=== PATIENT | female | born 1975 | race Caucasian/White ===

== ENCOUNTER → 2017-08-12 15:22 | Outpatient (CLI) | payer OTHER, SELFPAY ==
--- NOTE | 2017-08-12 | DI.MG.S_ITS ---
BILATERAL DIGITAL SCREENING MAMMOGRAM 3D/2D WITH CAD: 08/12/2017 CLINICAL: Routine screening. Comparison is made to exams dated: 08/06/2016 mammogram, 07/26/2016 mammogram, and 07/24/2015 mammogram - [facility]. There are scattered fibroglandular elements in both breasts. Current study was also evaluated with a Computer Aided Detection (CAD) system. No significant masses, calcifications, or other findings are seen in either breast. There has been no significant interval change. IMPRESSION: NEGATIVE There is no mammographic evidence of malignancy. A 1 year screening mammogram is recommended. This exam was interpreted at Station ID: [id number]. NOTE: For mammograms, a report in lay terms will be sent to the patient. Approximately 15% of breast malignancies will not be visualized mammographically. In the management of a palpable breast mass, a negative mammogram must not discourage biopsy of a clinically suspicious lesion. Electronically Signed By: César weldon/dionne:08/12/2017 15:46:14 letter sent: Normal Exam ACR BI-RADS Category 1: Negative [id number]
== END ==
PROVIDERS: Family Provider Family Medicine; PCP Family Medicine
DX: Z12.31 Encounter for screening mammogram for malignant neoplasm of breast (principal)
CPT/HCPCS: 77063; 77067

== ENCOUNTER → 2018-08-18 12:13 | Outpatient (CLI) | payer OTHER, SELFPAY | PROVIDERS: Family Provider Family Medicine; PCP Family Medicine | DX: Z12.31 Encounter for screening mammogram for malignant neoplasm of breast (principal) ==

== ENCOUNTER → 2018-09-11 08:57 | Outpatient (CLI) | payer OTHER, SELFPAY ==
--- NOTE | 2018-09-11 08:59 | DI.MG.S_ITS ---
BILATERAL DIGITAL DIAGNOSTIC MAMMOGRAM 3D/2D: 09/11/2018 CLINICAL: Left breast pain. Comparison is made to exams dated: 08/12/2017 mammogram, 07/26/2016 mammogram, and 07/24/2015 mammogram - [facility]. There are scattered fibroglandular elements in both breasts. No significant masses, calcifications, or other findings are seen in either breast. Specifically, no abnormalities in the area of pain, upper outer left breast. IMPRESSION: INCOMPLETE: NEEDS ADDITIONAL IMAGING EVALUATION There is no abnormality seen in the left breast to correspond with the pain in the superior lateral aspect, however, ultrasound is recommended. This was performed immediately following this exam. This exam was interpreted at Station ID: [id number]. NOTE: For mammograms, a report in lay terms will be sent to the patient. Approximately 15% of breast malignancies will not be visualized mammographically. In the management of a palpable breast mass, a negative mammogram must not discourage biopsy of a clinically suspicious lesion. Electronically Signed By: Maria Fernanda evans/:09/11/2018 09:51:05 ACR BI-RADS Category 0: Incomplete [id number]
--- NOTE | 2018-09-11 08:59 | DI.US.S_ITS ---
ULTRASOUND OF LEFT BREAST: 09/11/2018 CLINICAL: Intermitten pain in left breast. Comparison is made to exams dated: 09/11/2018 mammogram, 08/18/2018 mammogram, 08/12/2017 mammogram, 08/06/2016 mammogram, 07/26/2016 mammogram, and 07/24/2015 mammogram - [facility]. Color flow and real-time ultrasound of the left breast were performed. Wise scale images of the real-time examination were reviewed. No abnormalities were seen sonographically in the left breast. IMPRESSION: NEGATIVE There is no abnormality seen in the left breast to correspond with the pain in the lower aspect. There is no sonographic evidence of malignancy. Return to annual mammogram screening schedule is recommended. Findings and recommendations were conveyed to the patient at time of exam. This exam was interpreted at Station ID: [id number]. Electronically Signed By: Maria Fernanda evans/:09/11/2018 11:19:10 letter sent: Normal Exam Ultrasound BI-RADS: 1 Negative
== END ==
PROVIDERS: PCP Family Medicine
DX: R92.8 Other abnormal and inconclusive findings on diagnostic imaging of breast (principal); N64.4 Mastodynia
CPT/HCPCS: 76642; 77066; G0279

== ENCOUNTER → 2018-10-16 07:11 | Outpatient (CLI) | payer OTHER, SELFPAY ==
[2018-10-16 08:35] LABS: Hematocrit 37.1 % (36-46); Hemoglobin 12.4 g/dL (12.0-16.0); Mean Corpuscular HGB Conc 33.4 % (30-36); Mean Corpuscular Hemoglobin 31.8 PG (26-34); Mean Corpuscular Volume 95.3 fL (80-100); Platelet Count 270 X10^3/uL (150-400); Red Blood Cell Count 3.89 X10^6/uL (4.0-5.2); Red Cell Distribution Width 12.8 % (11.6-14.8); White Blood Cell Count 5.2 X10^3/uL (4.5-11.0)
[2018-10-16 09:05] LABS: Alanine Aminotransferase 13 IU/L (9-52); Albumin 4.1 g/dL (3.5-5.0); Albumin Globulin Ratio 1.3 (1.0-2.8); Alkaline Phosphatase 41 U/L (38-126); Aspartate Aminotransferase 24 IU/L (14-36); Bilirubin Total 0.3 mg/dL (0.2-1.3); Blood Urea Nitrogen 12 mg/dL (7-17); Calcium 8.9 mg/dL (8.4-10.2); Carbon Dioxide 31 mmol/L (22-32); Chloride 103 mmol/L (98-107); Cholesterol 157 mg/dL (140-199); Estimated Glomerular Filt Rate > 60.0 mL/min (>60); Globulin 3.1 g/dL (1.7-4.1); Glucose 81 mg/dL (70-100); HDL Cholesterol 48 mg/dL (40-60); HEMOLYSIS < 15 (0-50); LDL Cholesterol Calculated 94 mg/dL (<100); Potassium 4.4 mmol/L (3.4-5.1); Sodium 139 mmol/L (137-145); Total Protein 7.2 g/dL (6.3-8.2); Triglycerides 77 mg/dL (35-150)
[2018-10-16 10:50] LABS: Neutrophils Absolute Manual 2600 /uL (3000-5900); RBC Morphology Normal Morphology; Total Cells Counted 100
== END ==
PROVIDERS: PCP Family Medicine; Visit Provider Family Medicine
DX: R53.83 Other fatigue (principal)
CPT/HCPCS: 36415; 80053; 80061; 84443; 85025

== ENCOUNTER → 2019-11-23 12:09 | Outpatient (CLI) | payer OTHER, SELFPAY ==
--- NOTE | 2019-11-23 12:24 | DI.MG.S_ITS ---
Patient Name: TATE THOMAS date: 1975 Sex: F Attending Physician: Garret Indications: Date: 11/23/2019 12:28 At the request of: ROSARIO DAVIES Procedure: MM screening mammo BI BILATERAL DIGITAL SCREENING MAMMOGRAM 3D/2D WITH CAD: 11/23/2019 CLINICAL: Routine screening. Comparison is made to exams dated: 09/11/2018 mammogram, 08/12/2017 mammogram, and 07/26/2016 mammogram - [facility]. There are scattered fibroglandular elements in both breasts. Current study was also evaluated with a Computer Aided Detection (CAD) system. No significant masses, calcifications, or other findings are seen in either breast. There has been no significant interval change. IMPRESSION: NEGATIVE There is no mammographic evidence of malignancy. A 1 year screening mammogram is recommended. This exam was interpreted at Station ID: [id number]. NOTE: For mammograms, a report in lay terms will be sent to the patient. Approximately 15% of breast malignancies will not be visualized mammographically. In the management of a palpable breast mass, a negative mammogram must not discourage biopsy of a clinically suspicious lesion. Electronically Signed By: Herminio jansen/dionne:11/23/2019 12:50:17 letter sent: Normal Exam ACR BI-RADS Category 1: Negative [id number]
== END ==
PROVIDERS: PCP Family Medicine; Referring Provider Family Medicine; Visit Provider Family Medicine
DX: Z12.31 Encounter for screening mammogram for malignant neoplasm of breast (principal)
CPT/HCPCS: 77063; 77067

== ENCOUNTER 2022-11-28 20:46 | Observation (INO) | payer OTHER, MEDICAID, SELFPAY ==
[2022-11-28] VITALS (11 sets, daily range): BP systolic 108–144; BP diastolic 64–83; PULSE 60–114; RESP 10–18; TEMP 36.6; O2SAT 92–100; BMI 25.4
--- NOTE | 2022-11-28 20:56 | DI.RAD.S_ITS ---
PROCEDURE: XR CHEST 1V INDICATIONS: Chest pain TECHNIQUE: One view of the chest was acquired. COMPARISON: None. FINDINGS: Surgical changes and devices: None. Lungs and pleura: Lungs are clear. No pleural effusions or pneumothorax. Mediastinum: Mediastinal contours appear normal. Heart size is normal. Bones and chest wall: No suspicious bony lesions. Overlying soft tissues appear unremarkable. IMPRESSION: 1. No acute cardiopulmonary disease. Dictated by: Yoshi Brooks M.D. on 11/28/2022 at 21:34 Approved by: Yoshi Brooks M.D. on 11/28/2022 at 21:35
[2022-11-28] MEDS: ASPIRIN 81 MG CHEW TAB 324 MG PO (20:59)
[2022-11-28 21:14] LABS: Add Manual Diff / Slide Review NO; Basophils Absolute Auto 0 /uL (0-100); Basophils Percent Auto 0.6 % (0-2); Eosinophils Absolute Auto 100 /uL (0-450); Eosinophils Percent Auto 1.3 % (2-4); Hematocrit 36.1 % (36-46); Hemoglobin 12.1 g/dL (12.0-16.0); Lymphocytes Absolute Auto 2000 /uL (1100-4500); Mean Corpuscular HGB Conc 33.4 % (30-36); Mean Corpuscular Volume 92.9 fL (80-100); Monocytes Absolute Auto 600 /uL (0-900); Monocytes Percent Auto 8.8 % (3-14); Neutrophils Absolute Auto 4200 /uL (1500-7000); Neutrophils Percent Auto 60.3 % (50-75); Platelet Count 281 X10^3/uL (150-400); Red Blood Cell Count 3.89 X10^6/uL (4.0-5.2)
[2022-11-28 21:23] LABS: INR 1.1 (0.9-1.3); Prothrombin Time 12.2 SECONDS (10.1-12.7)
[2022-11-28 21:26] LABS: PTT Partial Thromboplastin Tim 31 SECONDS (26-36)
[2022-11-28 21:27] LABS: Alanine Aminotransferase 20 IU/L (<35); Albumin 4.2 g/dL (3.5-5.0); Albumin Globulin Ratio 1.4 (1.0-2.8); Alkaline Phosphatase 39 U/L (38-126); Aspartate Aminotransferase 26 IU/L (14-36); BUN Creatinine Ratio 15.1 (6-22); Bilirubin Total 0.2 mg/dL (0.2-1.3); Blood Urea Nitrogen 8 mg/dL (7-17); Calcium 8.9 mg/dL (8.4-10.2); Carbon Dioxide 28 mmol/L (22-32); Chloride 103 mmol/L (98-107); Creatine Kinase 93 U/L (30-135); Estimated Glomerular Filt Rate > 60 mL/min (>60); Globulin 3.1 g/dL (1.7-4.1); Glucose 98 mg/dL (70-100); HEMOLYSIS < 15 (0-50); Lipase 85 U/L (23-300); Magnesium 1.8 mg/dL (1.6-2.3); Potassium 3.5 mmol/L (3.4-5.1); Sodium 138 mmol/L (137-145); Total Protein 7.3 g/dL (6.3-8.2)
[2022-11-28 21:38] LABS: Troponin I < 0.012 ng/mL (0.01-0.034)
--- NOTE | 2022-11-28 21:49 | ED_ITS ---
HPI - Chest Pain General Chief Complaint: Chest Pain Stated Complaint: chest pain Time Seen by Provider: 11/28/22 21:01 Source: patient Mode of arrival: Ambulatory History of Present Illness HPI narrative: 47-year-old woman with no significant medical history presents complaining of chest pain. She states she was walking on her elliptical earlier today began having palpitations and chest tightness that was different and more intense than what she typically experiences with her regular exercise routine. It did seem to calm down when she got off the treadmill. As she was up and around fixing dinner she noticed again the tightness. After dinner she went for a walk with her and again with the activity felt that she was significantly more short of breath, had faster heart rate than she would have anticipated and squeezing chest tightness more on the left side. There was no nausea or diaphoresis. She does note that her father had heart attack at the age of 47 and her grandfather of coronary artery disease before the age of 50. She would had similar pain about 2 years ago had workup with the Cardiology had a s tandard treadmill stress test and was told that things were unremarkable. She had a colonoscopy on Tuesday at the [facility] and the nurse at the time told her that she had some flipped T-waves but the doctor was not concerned with the EKG. She reports no recent fever cough chills or viral symptoms. No lower extremity edema Related Data Home Medications Medication Instructions Recorded Confirmed OMEGA-3/DHA/EPA/FISH OIL (Pacific-3 1 cap PO ##0 11/21/11 10/11/19 Fish Oil Softgel) BORON/CA/CU/MG/MN/VIT D/ZINC 1 tab PO QDAY ##0 05/18/12 10/11/19 (#CALCIUM 600 + MINERALS) Coconut Oil (#COCONUT OIL 1 ML) 1 ml PO QDAY ##0 05/18/12 10/11/19 CA PANTOTHENATE/FOLIC ACID/VIT 1 tab PO QDAY ##0 07/25/12 10/11/19 (MULTIVITAMIN) Previous Rx's Medication Instructions Recorded fexofenadine-pseudoephedrine ER 1 tab PO QDAY #30 tabs 08/02/16 180 mg-240 mg tablet,ext.release 24 hr (Olena-D 24 Hour) acyclovir 400 mg tablet 400 mg PO QID #20 tabs 07/25/19 Allergies Allergy/AdvReac Type Severity Reaction Status Date / Time prednisone Allergy Intermediate facial Verified 12/03/19 14:55 swelling and nausea fentanyl Allergy Verified 11/28/22 20:55 nickel Allergy Verified 11/28/22 20:55 metal braces AdvReac Unknown Uncoded 12/03/19 14:55 Review of Systems Review of Systems Narrative: Pertinent positive and negative findings as per HPI Patient History Surgical History Status post delivery (04/23/11) Status post delivery (11/21/09) Status post colonoscopy Status post tubal ligation (04/23/11) Family History Brother Age: 59 High cholesterol Brother Age: 56 High cholesterol Father Cancer Heart disease Hypertension Mother Cancer Grandfather Heart disease Grandmother Cancer Social History Smoking Status: Never smoker Smoking Status: Never smoker Substance Use Type: does not use Exam Initial Vital Signs Initial Vital Signs: Vital Signs Temperature 97.9 F 11/28/22 20:47 Pulse Rate 114 H 11/28/22 20:47 Respiratory Rate 16 11/28/22 20:47 Blood Pressure 144/74 H 11/28/22 20:47 Pulse Oximetry 100 11/28/22 20:47 Oxygen Delivery Method Room Air 11/28/22 20:47 General: Healthy appearing, in no acute distress. Able to give a complete and coherent history. Well-nourished well-developed HEENT: Moist mucous membranes, normal sclera with reactive pupils, Neck: No JVD, supple Respiratory: Lungs are clear to auscultation, no wheezing no rales no rhonchi. Full and symmetrical air movement Cardiac: Tachycardic with occasional irregular beats, no murmurs Abdomen: Soft, nontender, good bowel tones, no flank pain Skin: Warm and dry, no rashes Neurologic: Grossly neurologically intact with no obvious asymmetries or abnormalities Extremities: No trauma, well perfused Psych: Cooperative, appropriate insight and affect Course Orders Ordered: ED Orders 11/28/22 20:55 Complete Blood Count AUTO DIFF Stat Comprehensive Metabolic Panel Stat D Dimer Stat Lipase Stat Magnesium Stat PTT Partial Thromboplastin Wilber Stat Prothrombin Time INR Stat Troponin & CK Cardiac Panel Stat 11/28/22 20:56 XR chest 1V Stat EKG-12 Lead Stat 11/28/22 23:16 EKG-12 Lead Stat 11/28/22 23:19 Trop I [Troponin I] Stat Discontinued Medications Aspirin (Aspirin 81 Mg Chew Tab) 324 mg PO NOW ONE Stop: 11/28/22 20:56 Last Admin: 11/28/22 20:59 Dose: 324 mg Documented By: Vital Signs Vital signs: Vital Signs - 8 hr 11/28/22 20:47 11/28/22 20:51 11/28/22 20:52 Temperature 97.9 F Pulse Rate 114 H 108 H 103 H Respiratory Rate 16 14 Blood Pressure 144/74 H Pulse Oximetry 100 100 Oxygen Delivery Method Room Air 11/28/22 21:00 11/28/22 21:00 11/28/22 21:30 Temperature Pulse Rate 103 H Respiratory Rate 18 Blood Pressure 127/78 108/74 Pulse Oximetry 100 Oxygen Delivery Method 11/28/22 21:30 11/28/22 22:00 11/28/22 22:00 Temperature Pulse Rate 78 83 Respiratory Rate 11 L 13 Blood Pressure 118/83 Pulse Oximetry 99 100 Oxygen Delivery Method 11/28/22 22:30 11/28/22 22:30 11/28/22 23:00 Temperature Pulse Rate 63 Respiratory Rate 16 Blood Pressure 132/76 118/74 Pulse Oximetry 97 Oxygen Delivery Method 11/28/22 23:00 11/28/22 23:30 11/28/22 23:31 Temperature Pulse Rate 60 70 71 Respiratory Rate 10 L 13 Blood Pressure Pulse Oximetry 95 97 96 Oxygen Delivery Method 11/28/22 23:31 11/28/22 23:40 11/28/22 23:40 Temperature Pulse Rate 69 Respiratory Rate Blood Pressure 144/76 H 130/64 Pulse Oximetry 92 Oxygen Delivery Method 11/29/22 00:00 11/29/22 00:00 11/29/22 00:30 Temperature Pulse Rate 77 Respiratory Rate 13 Blood Pressure 121/82 127/84 Pulse Oximetry 97 Oxygen Delivery Method 11/29/22 00:30 Temperature Pulse Rate 65 Respiratory Rate 13 Blood Pressure Pulse Oximetry 98 Oxygen Delivery Method MDM - Chest Pain Lab Data 11/28/22 20:55 11/28/22 20:55 Labs: Lab Results 11/28/22 11/28/22 11/28/22 Range/Units 20:55 20:55 20:55 WBC 7.0 (4.5-11.0) X10^3/uL RBC 3.89 L (4.0-5.2) X10^6/uL Hgb 12.1 (12.0-16.0) g/dL Hct 36.1 (36-46) % MCV 92.9 (80-100) fL MCH 31.0 (26-34) PG MCHC 33.4 (30-36) % RDW 14.0 (11.6-14.8) % Plt Count 281 (150-400) X10^3/uL Neut % (Auto) 60.3 (50-75) % Lymph % (Auto) 29.0 (25-40) % [place] % (Auto) 8.8 (3-14) % Eos % (Auto) 1.3 L (2-4) % Baso % (Auto) 0.6 (0-2) % Neut # (Auto) 4200 (1256-9832) /uL Lymph # (Auto) 2000 (9335-0909) /uL [place] # (Auto) 600 (0-900) /uL Eos # (Auto) 100 (0-450) /uL Baso # (Auto) 0 (0-100) /uL PT 12.2 (10.1-12.7) SECONDS INR 1.1 (0.9-1.3) APTT 31 (26-36) SECONDS D-Dimer (<500) ng/ml Sodium 138 (137-145) mmol/L Potassium 3.5 (3.4-5.1) mmol/L Chloride 103 (98-107) mmol/L Carbon Dioxide 28 (22-32) mmol/L BUN 8 (7-17) mg/dL Creatinine 0.53 (0.52-1.04) mg/dL Estimated GFR > 60 (>60) mL/min BUN/Creatinine Ratio 15.1 (6-22) Glucose 98 (70-100) mg/dL Calcium 8.9 (8.4-10.2) mg/dL Magnesium 1.8 (1.6-2.3) mg/dL Total Bilirubin 0.2 (0.2-1.3) mg/dL AST 26 (14-36) IU/L ALT 20 (<35) IU/L Alkaline Phosphatase 39 (38-126) U/L Total Creatine Kinase 93 (30-135) U/L Troponin I < 0.012 (0.01-0.034) ng/mL Total Protein 7.3 (6.3-8.2) g/dL Albumin 4.2 (3.5-5.0) g/dL Globulin 3.1 (1.7-4.1) g/dL Albumin/Globulin Ratio 1.4 (1.0-2.8) Lipase 85 (23-300) U/L 11/28/22 11/28/22 Range/Units 20:55 23:19 WBC (4.5-11.0) X10^3/uL RBC (4.0-5.2) X10^6/uL Hgb (12.0-16.0) g/dL Hct (36-46) % MCV (80-100) fL MCH (26-34) PG MCHC (30-36) % RDW (11.6-14.8) % Plt Count (150-400) X10^3/uL Neut % (Auto) (50-75) % Lymph % (Auto) (25-40) % [place] % (Auto) (3-14) % Eos % (Auto) (2-4) % Baso % (Auto) (0-2) % Neut # (Auto) (6410-1782) /uL Lymph # (Auto) (0956-9520) /uL [place] # (Auto) (0-900) /uL Eos # (Auto) (0-450) /uL Baso # (Auto) (0-100) /uL PT (10.1-12.7) SECONDS INR (0.9-1.3) APTT (26-36) SECONDS D-Dimer < 215 (<500) ng/ml Sodium (137-145) mmol/L Potassium (3.4-5.1) mmol/L Chloride (98-107) mmol/L Carbon Dioxide (22-32) mmol/L BUN (7-17) mg/dL Creatinine (0.52-1.04) mg/dL Estimated GFR (>60) mL/min BUN/Creatinine Ratio (6-22) Glucose (70-100) mg/dL Calcium (8.4-10.2) mg/dL Magnesium (1.6-2.3) mg/dL Total Bilirubin (0.2-1.3) mg/dL AST (14-36) IU/L ALT (<35) IU/L Alkaline Phosphatase (38-126) U/L Total Creatine Kinase (30-135) U/L Troponin I < 0.012 (0.01-0.034) ng/mL Total Protein (6.3-8.2) g/dL Albumin (3.5-5.0) g/dL Globulin (1.7-4.1) g/dL Albumin/Globulin Ratio (1.0-2.8) Lipase (23-300) U/L MDM Narrative Medical decision making narrative: CC: Chest pain exertional worse over the afternoon associated with tachycardia Complicating co-morbidities: Family history with father and grandfather with heart attacks prior to the age of 50 Data collected from: patient, Medical records reviewed: Gynecologic and family practice notes are reviewed Differential considered: Acute coronary syndrome, pulmonary embolism, pneumothorax Exam documented above, pertinent findings include: Completely benign exam with pain resolved at rest currently Lab Test results independently reviewed as above. Pertinent findings: CBC is unremarkable Chemistries are reassuring Initial troponin is undetectable as is creatinine kinase. Repeat troponin is equally undetectable Lipase is unremarkable Independently reviewed EKG sinus rhythm with frequent PVCs, essentially bigeminy, with no acute ischemic changes 23:24 Repeat EKG shows sinus rhythm rate of 74, much less frequent PVCs, still no acute ischemic changes. Imaging studies independently reviewed: Chest x-ray is unremarkable without cardiomegaly or pulmonary infiltrates Treatments: asprin Re-evaluations:1120pm patient's heart rate has stabilized with only an occasional PVC rather than bigeminy at this point. She is not having any addit ional chest pain or tightness. Second troponin is being drawn. Heart score with the 1st troponin is 5 which puts her at high risk and hospital observation is recommended. I have discussed this with the patient and her . They are amenable. We will contact the hospitalist after the 2nd troponin. If it is increasing will discuss possible transfer to facility with inpatient Cardiology and veterinarian laboratory animal care. Discussion: Patient is re-evaluated. She remains pain-free at this point her heart score is 5 which puts her at high risk and hospitalization is recommended. Troponins remain negative. Frequency of PVCs is significantly less. Care is reviewed with the hospitalist service, Dr Diego, questions are answered and patient is safe for transfer to the floor Discharge Plan Departure Patient Disposition: Admitted as Observation Clinical Impression: Unstable angina pectoris Chest pain Qualifiers: Ischemic chest pain type: unstable angina pectoris
[2022-11-28 22:31] LABS: D Dimer < 215 ng/ml (<500)
[2022-11-28 23:48] LABS: Troponin I < 0.012 ng/mL (0.01-0.034)
[2022-11-29] VITALS (8 sets, daily range): BP systolic 100–127; BP diastolic 64–84; PULSE 64–77; RESP 11–20; TEMP 35.6–36.6; O2SAT 97–99; BMI 25.5
--- NOTE | 2022-11-29 08:12 | DI.ECHO.S_ITS ---
[place] +---------+ [facility] +---------+ : : [address] : : : : [id number] : : : : Phone: [phone] Echocardiogram Report + + :Name: TATE THOMAS Study Date: 11/29/2022 Height: 63 in : :[facility] ReadingLocation: Weight: 144 lb : : Gender: Female BSA: 1.7 m2 : :: 1975 Age: 47 yrs BP: 102/67 mmHg: :Reason For Study: CHEST PAIN : :Ordering Physician: KEKE, : :ROSARIO Performed By: Daphney Gu : :Referring: ROSARIO DAVIES : + + Interpretation Summary The ejection fraction is estimated to be 55-60%. Diastolic parameters suggest probable normal left ventricular diastolic function and normal filling pressures. The right ventricle is normal in size and function. There is trace aortic regurgitation. Pulmonary artery pressures cannot be estimated because of the lack of a measurable TR jet velocity but the IVC suggests a CVP of around 3 mmHg. Procedure: A two-dimensional transthoracic echocardiogram with color flow and Doppler was performed. The study quality was technically adequate. There is no prior echocardiogram noted for this patient. The patient was in sinus rhythm with heart rates between 64-72 bpm during the exam. Left Ventricle: The left ventricle is normal in size and wall thickness. The ejection fraction is estimated to be 55-60%. Diastolic parameters suggest probable normal left ventricular diastolic function and normal filling pressures. Right Ventricle: The right ventricle is normal in size and function. Atria: The left atrium is borderline dilated. Right atrial size is normal. There is no Doppler evidence for an interatrial shunt. Mitral Valve: The mitral valve is normal in structure and function. There is trace mitral regurgitation. Aortic Valve: The aortic valve is not well visualized. There is no aortic valve stenosis. There is trace aortic regurgitation. Tricuspid Valve: The tricuspid valve is normal in structure and function. There is trace tricuspid regurgitation. Pulmonary artery pressures cannot be estimated because of the lack of a measurable TR jet velocity but the IVC suggests a CVP of around 3 mmHg. Pulmonic Valve: The pulmonic valve is not well seen, but is grossly normal. There is no pulmonic valvular regurgitation. Great Vessels: The aortic root is normal size. The dimensions of the ascending aorta are normal. The IVC is of normal diameter and collapses greater than 50% with a sniff. This suggests a low right atrial pressure of 3 mm Hg. Pericardium/ Pleura There is no pericardial effusion. There is no pleural effusion. MMode/2D Measurements & Calculations LVIDd: 5.0 cm LVOT diam: 2.1 cm LVIDs: 3.7 cm Ao root diam: 3.3 cm FS: 24.7 % asc Aorta Diam: 3.0 cm EPSS: 0.74 cm Ao Arch Diam (Prox Trans): 2.3 cm IVSd: 0.66 cm LVPWd: 0.79 cm LV tran. diameter/BSA (cm/m^2): 3.0 LV sys. diameter/BSA (cm/m^2): 2.2 LA A2 area: 21.9 cm2 RA long axis: 4.3 cm LA A4 area: 15.8 cm2 RA area: 12.4 cm2 LA length (vol): 4.8 cm RA vol: 30.8 ml LA vol: 60.7 ml RA : 18.3 ml/m2 LA vol index: 36.1 ml/m2 IVC diam: 1.6 cm RVD1 (basal): 3.1 cm RVD2 (mid): 3.1 cm TAPSE: 2.7 cm Doppler Measurements & Calculations Ao V2 max: 116.7 cm/sec LVOT Max Bola: 92.5 cm/sec Ao V2 mean: 85.0 cm/sec LV V1 max P.4 mmHg Ao max P.4 mmHg LV V1 VTI: 21.3 cm Ao mean P.2 mmHg BAL(I,D): 2.7 cm2 Ao V2 VTI: 26.2 cm BAL(V,D): 2.7 cm2 sev ratio: 0.81 BAL indexed to BSA (cm^2/m^2): 1.6 MV E max bola: 51.0 cm/sec PA V2 max: 78.7 cm/sec MV A max bola: 54.1 cm/sec PA V2 mean: 62.0 cm/sec MV E/A: 0.94 PA mean P.6 mmHg Med Peak E' Bola: 10.1 cm/sec PA pr(Accel): 7.1 mmHg E/E' med: 5.0 Lat Peak E' Bola: 13.8 cm/sec E/E' lat: 3.7 E/e' average: 4.4 MV dec time: 0.21 sec [facility] 71.2 ml Reading Physician:01:58 PM
--- NOTE | 2022-11-29 08:27 | P.HP_ITS ---
History of Present Illness History of Present Illness Date Patient Seen: 11/29/22 Time Patient Seen: 08:27 Chief complaint: chest pain Narrative: 47-year-old female presented to the emergency department yesterday afternoon with chest pain. Patient states he is had chest pain on and off for about 12 hours. She had chest pain previously about 2 years ago and had a workup with a stress echocardiogram which was normal. Her chest pain then was at rest this is different. Patient states she has a strong family history of heart disease in both of her parents. Yesterday evening while she was on the elliptical operational trainer she began to have pain in her chest. It got worse with activity. She describes as an achy pain in the left side of her chest. 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 Patient then began to have shortness of breath. She got off her treadmill and then the pain happened again in the kitchen each time it happened happened a little bit longer. She decided to go outside go for a little walk with her and during that time the pain in her chest got even worse. At that p oint they came to the emergency department. The pain has happened once since then. In the emergency department patient had EKG x2 which showed no ST or T- wave changes. She had 2 sets of cardiac enzymes which were negative. Due to her strong family history of heart disease. Her playground monitor which showed multiple PVCs and PACs she was admitted the hospital for further evaluation and workup. This morning patient has a mild amount of chest discomfort last night but none now. She is no longer short of breath patient had travel trip about 3 weeks ago to [place] patient underwent a colonoscopy on Tuesday. She is not on any medications she is not on any hormone replacement. She has not taken an aspirin. On her playground monitor overnight patient has had frequent PVCs and PACs. I reviewed her EKGs which showed PVCs and PACs without ST or T-wave changes her cardiac enzymes x2 are negative. [facility] Surgical History Status post delivery (04/23/11) Status post delivery (11/21/09) Status post colonoscopy Status post tubal ligation (04/23/11) Family History Brother Age: 59 High cholesterol Brother Age: 56 High cholesterol Father Cancer Heart disease Hypertension Mother Cancer Grandfather Heart disease Grandmother Cancer Social History household members: spouse and children Smoking Status: Never smoker alcohol intake: never Meds Home Medications and Allergies Home Medications Medication Instructions Recorded Confirmed Type OMEGA-3/DHA/EPA/FISH OIL ([place]-3 1 cap PO DAILY ##0 11/21/11 11/29/22 History Fish Oil Softgel) [place]/CA/CU/MG/MN/VIT D/ZINC 1 tab PO QDAY ##0 05/18/12 11/29/22 History (#CALCIUM 600 + MINERALS) Coconut Oil (#COCONUT OIL 1 ML) 1 ml PO QDAY ##0 05/18/12 11/29/22 History CA PANTOTHENATE/FOLIC ACID/VIT 1 tab PO QDAY ##0 07/25/12 11/29/22 History (MULTIVITAMIN) fexofenadine-pseudoephedrine ER 1 tab PO QDAY #30 tabs 08/02/16 11/29/22 Rx 180 mg-240 mg tablet,ext.release 24 hr (Olena-D 24 Hour) acyclovir 400 mg tablet 400 mg PO QID #20 tabs 07/25/19 11/29/22 Rx Allergies Allergy/AdvReac Type Severity Reaction Status Date / Time prednisone Allergy Intermediate facial Verified 12/03/19 14:55 swelling and nausea fentanyl Allergy Verified 11/28/22 20:55 nickel Allergy Verified 11/28/22 20:55 metal braces AdvReac Unknown Uncoded 12/03/19 14:55 Exam Vital Signs (past 8 hours): - 11/29/22 00:30 11/29/22 00:30 11/29/22 01:00 Temperature Pulse Rate 65 Respiratory Rate 13 Blood Pressure 127/84 126/72 Pulse Oximetry 98 Oxygen Flow Rate 11/29/22 01:00 11/29/22 01:30 11/29/22 01:30 Temperature Pulse Rate 70 68 Respiratory Rate 11 L 13 Blood Pressure 126/75 Pulse Oximetry 98 97 Oxygen Flow Rate 11/29/22 02:00 11/29/22 04:47 11/29/22 08:00 Temperature 96.0 F L 97.4 F L 97.8 F Pulse Rate 64 71 66 Respiratory Rate 15 20 16 Blood Pressure 120/75 100/64 102/67 Pulse Oximetry 98 99 99 Oxygen Flow Rate 0 0 0 Oxygen Delivery Method Room Air Oxygen Flow Rate 0 Narrative Exam Narrative: Gen.: Alert and oriented x3 no apparent distress. HEENT: NCAT PERRLA tympanic membranes are clear nares are patent oral mucosa is moist no tonsillar hypertrophy neck is supple without lymphadenopathy no thyroid enlargement. Cardio: S1-S2 regular rate and rhythm no murmurs appreciated. Respiratory: Lungs are clear to auscultation no wheezes or crackles normal respiratory effort. Abdomen: Soft nontender no rebound or guarding no liver spleen enlargement no appreciable hernias Extremities: Full range of motion no appreciable weakness no cyanosis or edema. Neurologic: Grossly intact. Objective Labs 11/28/22 20:55 11/28/22 20:55 Labs: Laboratory Results - last 24 hr 11/28/22 11/28/22 11/28/22 20:55 20:55 20:55 WBC 7.0 RBC 3.89 L Hgb 12.1 Hct 36.1 MCV 92.9 MCH 31.0 MCHC 33.4 RDW 14.0 Plt Count 281 Neut % (Auto) 60.3 Lymph % (Auto) 29.0 [place] % (Auto) 8.8 Eos % (Auto) 1.3 L Baso % (Auto) 0.6 Neut # (Auto) 4200 Lymph # (Auto) 2000 [place] # (Auto) 600 Eos # (Auto) 100 Baso # (Auto) 0 PT 12.2 INR 1.1 APTT 31 D-Dimer Sodium 138 Potassium 3.5 Chloride 103 Carbon Dioxide 28 BUN 8 Creatinine 0.53 Estimated GFR > 60 BUN/Creatinine Ratio 15.1 Glucose 98 Calcium 8.9 Magnesium 1.8 Total Bilirubin 0.2 AST 26 ALT 20 Alkaline Phosphatase 39 Total Creatine Kinase 93 Troponin I < 0.012 Total Protein 7.3 Albumin 4.2 Globulin 3.1 Albumin/Globulin Ratio 1.4 Lipase 85 11/28/22 11/28/22 20:55 23:19 WBC RBC Hgb Hct MCV MCH MCHC RDW Plt Count Neut % (Auto) Lymph % (Auto) [place] % (Auto) Eos % (Auto) Baso % (Auto) Neut # (Auto) Lymph # (Auto) [place] # (Auto) Eos # (Auto) Baso # (Auto) PT INR APTT D-Dimer < 215 Sodium Potassium Chloride Carbon Dioxide BUN Creatinine Estimated GFR BUN/Creatinine Ratio Glucose Calcium Magnesium Total Bilirubin AST ALT Alkaline Phosphatase Total Creatine Kinase Troponin I < 0.012 Total Protein Albumin Globulin Albumin/Globulin Ratio Lipase Assessment & Plan Assessment and plan (1) Chest pain: Qualifiers: Ischemic chest pain type: unstable angina pectoris Status: Acute Plan 47-year-old female admitted to the hospital because concerning family history and concerning history of chest pain. Patient will have serial cardiac enzymes x3 to rule out myocardial ischemia. EKG x2 is negative. ekg monitor tech shows frequent PVCs and PACs. She is pain-free now. Like to order an echocardiogram this morning to make sure that there is no significant wall lolis on abnormalities. Will order on a D-dimer as well she recently had a colonoscopy procedure and travel within the last few weeks. I am going to order a stress test Cardiolite because of her age and risk factors. Hopefully this can be done as an inpatient if not we may have to do outpatient stress testing once we confirm that there is no myocardial ischemia.
[2022-11-29 08:45] LABS: INR 1.1 (0.9-1.3); Prothrombin Time 12.9 SECONDS (10.1-12.7)
[2022-11-29 08:46] LABS: D Dimer 269 ng/ml (<500)
[2022-11-29 08:50] LABS: Alanine Aminotransferase 19 IU/L (<35); Albumin 3.8 g/dL (3.5-5.0); Albumin Globulin Ratio 1.3 (1.0-2.8); Alkaline Phosphatase 40 U/L (38-126); Aspartate Aminotransferase 24 IU/L (14-36); BUN Creatinine Ratio 16.3 (6-22); Bilirubin Total 0.3 mg/dL (0.2-1.3); Blood Urea Nitrogen 8 mg/dL (7-17); Carbon Dioxide 26 mmol/L (22-32); Chloride 106 mmol/L (98-107); Creatine Kinase 76 U/L (30-135); Estimated Glomerular Filt Rate > 60 mL/min (>60); Globulin 2.9 g/dL (1.7-4.1); Glucose 88 mg/dL (70-100); HEMOLYSIS < 15 (0-50); Potassium 3.6 mmol/L (3.4-5.1); Sodium 138 mmol/L (137-145); Total Protein 6.7 g/dL (6.3-8.2)
[2022-11-29 09:01] LABS: Troponin I < 0.012 ng/mL (0.01-0.034)
--- NOTE | 2022-11-29 09:07 | PC.NURSE ---
Patient denies any chest pain this morning. She is up independently. Patients stress test will be out patient and it will not get done today. It will be outpatient. She does have an echo today, after this is done and results are in. Patient will most likely go home.
--- NOTE | 2022-11-29 15:06 | P.DS_ITS ---
History of Present Illness History of Present Illness Chief complaint: chest pain Narrative: 47-year-old female presented to the emergency department yesterday afternoon with chest pain. Patient states he is had chest pain on and off for about 12 hours. She had chest pain previously about 2 years ago and had a workup with a stress echocardiogram which was normal. Her chest pain then was at rest this is different. Patient states she has a strong family history of heart disease in both of her parents. Yesterday evening while she was on the elliptical epic trainer she began to have pain in her chest. It got worse with activity. She describes as an achy pain in the left side of her chest. 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 Patient then began to have shortness of breath. She got off her treadmill and then the pain happened again in the kitchen each time it happened happened a little bit longer. She decided to go outside go for a little walk with her and during that time the pain in her chest got even worse. At that po int they came to the emergency department. The pain has happened once since then. In the emergency department patient had EKG x2 which showed no ST or T- wave changes. She had 2 sets of cardiac enzymes which were negative. Due to her strong family history of heart disease. Her capacity planning analyst which showed multiple PVCs and PACs she was admitted the hospital for further evaluation and workup. This morning patient has a mild amount of chest discomfort last night but none now. She is no longer short of breath patient had travel trip about 3 weeks ago to [place] patient underwent a colonoscopy on Tuesday. She is not on any medications she is not on any hormone replacement. She has not taken an aspirin. On her capacity planning analyst overnight patient has had frequent PVCs and PACs. I reviewed her EKGs which showed PVCs and PACs without ST or T-wave changes her cardiac enzymes x2 are negative. Discharge Providers Provider Date of admission: 11/29/22 01:41 Discharge Date: 11/29/22 Primary care physician: El Combs MD Discharge provider: El Combs MD Summary Hospital Course Discharge Diagnosis: Chest pain Hospital Course: 47-year-old female admitted with chest pain. Cardiac enzymes x3 were negative. Telemetry monitoring shows PVCs and PACs but no concerning symptoms. EKG shows no significant ST or T-wave inversion or changes. Echocardiogram showed normal ejection fraction without significant wall motion abnormality. Patient was not able to do Cardiolite stress testing in the hospital due to unavailable space and then nuclear medicine lab. Patient will be arranged for an outpatient Car diolite stress test. Exam Vital Signs (past 8 hours): - 11/29/22 08:00 11/29/22 12:00 Temperature 97.8 F Pulse Rate 66 70 Respiratory Rate 16 16 Blood Pressure 102/67 107/69 Pulse Oximetry 99 97 Oxygen Flow Rate 0 0 Oxygen Delivery Method Room Air Oxygen Flow Rate 0 Objective Labs 11/28/22 20:55 11/29/22 Unknown Labs: Laboratory Results - last 24 hr 11/28/22 11/28/22 11/28/22 20:55 20:55 20:55 WBC 7.0 RBC 3.89 L Hgb 12.1 Hct 36.1 MCV 92.9 MCH 31.0 MCHC 33.4 RDW 14.0 Plt Count 281 Neut % (Auto) 60.3 Lymph % (Auto) 29.0 [place] % (Auto) 8.8 Eos % (Auto) 1.3 L Baso % (Auto) 0.6 Neut # (Auto) 4200 Lymph # (Auto) 2000 [place] # (Auto) 600 Eos # (Auto) 100 Baso # (Auto) 0 PT 12.2 INR 1.1 APTT 31 D-Dimer Sodium 138 Potassium 3.5 Chloride 103 Carbon Dioxide 28 BUN 8 Creatinine 0.53 Estimated GFR > 60 BUN/Creatinine Ratio 15.1 Glucose 98 Calcium 8.9 Magnesium 1.8 Total Bilirubin 0.2 AST 26 ALT 20 Alkaline Phosphatase 39 Total Creatine Kinase 93 Troponin I < 0.012 Total Protein 7.3 Albumin 4.2 Globulin 3.1 Albumin/Globulin Ratio 1.4 Lipase 85 11/28/22 11/28/22 11/29/22 20:55 23:19 08:12 WBC RBC Hgb Hct MCV MCH MCHC RDW Plt Count Neut % (Auto) Lymph % (Auto) [place] % (Auto) Eos % (Auto) Baso % (Auto) Neut # (Auto) Lymph # (Auto) [place] # (Auto) Eos # (Auto) Baso # (Auto) PT 12.9 H INR 1.1 APTT D-Dimer < 215 269 Sodium Potassium Chloride Carbon Dioxide BUN Creatinine Estimated GFR BUN/Creatinine Ratio Glucose Calcium Magnesium Total Bilirubin AST ALT Alkaline Phosphatase Total Creatine Kinase Troponin I < 0.012 Total Protein Albumin Globulin Albumin/Globulin Ratio Lipase 11/29/22 Unknown WBC RBC Hgb Hct MCV MCH MCHC RDW Plt Count Neut % (Auto) Lymph % (Auto) [place] % (Auto) Eos % (Auto) Baso % (Auto) Neut # (Auto) Lymph # (Auto) [place] # (Auto) Eos # (Auto) Baso # (Auto) PT INR APTT D-Dimer Sodium 138 Potassium 3.6 Chloride 106 Carbon Dioxide 26 BUN 8 Creatinine 0.49 L Estimated GFR > 60 BUN/Creatinine Ratio 16.3 Glucose 88 Calcium 9.0 Magnesium Total Bilirubin 0.3 AST 24 ALT 19 Alkaline Phosphatase 40 Total Creatine Kinase 76 Troponin I < 0.012 Total Protein 6.7 Albumin 3.8 Globulin 2.9 Albumin/Globulin Ratio 1.3 Lipase [facility] Surgical History Status post delivery (04/23/11) Status post delivery (11/21/09) Status post colonoscopy Status post tubal ligation (04/23/11) Family History Brother Age: 59 High cholesterol Brother Age: 56 High cholesterol Father Cancer Heart disease Hypertension Mother Cancer Grandfather Heart disease Grandmother Cancer Social History household members: spouse and children Smoking Status: Never smoker alcohol intake: never Discharge Plan Discharge Plan Patient Disposition: Home Provider Discharge Comment: Follow-up with Dr. Combs in 10 days Nursing Discharge Comment: Outpatient Cardiolite stress test Discharge orders & Medications Prescriptions: New aspirin 325 mg tablet 325 mg PO DAILY Qty: 90 0RF Continued OMEGA-3/DHA/EPA/FISH OIL ([place]-3 Fish Oil Softgel) 1 cap PO DAILY Qty: 0 [place]/CA/CU/MG/MN/VIT D/ZINC (#CALCIUM 600 + MINERALS) 1 tab PO QDAY Qty: 0 Coconut Oil (#COCONUT OIL 1 ML) 1 ml PO QDAY Qty: 0 CA PANTOTHENATE/FOLIC ACID/VIT (MULTIVITAMIN) 1 tab PO QDAY Qty: 0 fexofenadine-pseudoephedrine [Olena-D 24 Hour] 180 MG/240 MG tablet extended release 24 hr 1 tab PO QDAY Qty: 30 3RF acyclovir 400 mg tablet 400 mg PO QID Qty: 20 2RF Rx Instructions: As needed for Herpes Follow up/Referrals: El Combs MD [Primary Care Provider] - Visit Report/Discharge Packet Stand Alone Forms: Patient Portal/API Discharge Data Primary Care Provider: El Combs Attending Provider: Forrest Vickers Admit Date/Time: 11/29/22 01:41
== END 2022-11-29 16:26 | disposition home or self-care (01) ==
LOC: ED 23:23 → AC 11-29 01:42
PROVIDERS: Admitting Provider Family Medicine; Emergency Provider Emergency Medicine; PCP Family Medicine; Visit Provider Family Medicine
DX: R07.9 Chest pain, unspecified (principal)
CPT/HCPCS: 36415; 71045; 80053; 82550; 83690; 83735; 84484; 85025; 85379; 85610; 85730; 93005; 93306; 99284; G0378